=== PATIENT | female | born 1990 | race Caucasian/White ===

== ENCOUNTER 2019-05-12 11:30 | Emergency (ER) | payer OTHER ==
[~2019-05-12] VITALS: Ht 162.6 cm; Wt 54.5 kg
[2019-05-12 11:53] VITALS: Ht 162.6 cm; Wt 54.5 kg
[2019-05-12] MEDS ORDERED: ACETAMINOPHEN 500 MG TAB PO STA (12:21)
[2019-05-12] MEDS ORDERED: DIAZEPAM 5 MG TAB PO ONE (12:30)
[2019-05-12] MEDS ORDERED: HYDROCODONE/APAP (5/325) TAB PO ONE ×2 (14:00→17:30)
[2019-05-12] MEDS ORDERED: HYDR-4011 PO (14:03)
[2019-05-12] MEDS ORDERED: NAPR-985 PO ×2 (14:03→20:57)
--- NOTE | 2019-05-12 16:36 | CONS ---
Assessment/Plan Assessment/Plan Hospital Course (Demo Recall) 29-year-old female who presents the emergency department with right knee pain and fixed flexion at 30 degrees. Given her history of a previous potential meniscus tear symptoms it is possible that this is the old tear that displaced into the notch again. Unlikely a new tear as there is no significant effusion or swelling of the knee. It is also possible that she has a loose body that became stuck in the notch as well. Her location of pain is little unusual she has no joint line pain. At this time we will order an MRI in the emergency department to further evaluate the knee. If positive for a bucket-handle tear and/or loose body will likely refer patient urgently to outpatient orthopedic sports clinic. Plan: Right knee MRI We will follow-up MRI when complete Consultation Date/Type/Reason Admit Date/Time Date of Consultation: May 12, 2019 Reason for Consultation Right knee pain Date/Time of Note DATE: 05/12/19 TIME: 16:29 Hx of Present Illness 29-year-old female presents the emergency department with right knee pain and knee stuck in flexion. She was getting up from a chair at work when she twisted her knee. She did feel a pop. After that she is unable to bear weight and unable to extend her knee fully. This happened to her once before approximately 2 years ago. She did have an MRI at that time, she does mention there was some sort of tear but not sure what it was. She was treated with physical therapy and anti-inflammatories at that time. States her knees have always been weak. Her pain is mostly posterior. She denies numbness and tingling. She does have history of back problems with 2 herniated disks in the lumbar spine. She does have some calf pain. She does not have a history of patellar dislocations. Patient denies fever, chills, shortness of breath, chest pain, nausea/vomiting, constipation, diarrhea, numbness, and tingling. Past Medical History Home Meds Active Scripts Naproxen* (Naprosyn*) 500 Mg Tablet, 500 MG PO BID PRN for PAIN AND/OR INFLAMMATION, #30 TAB Prov:DAVID ROBB PA-C 05/12/19 Hydrocodone/Acetaminophen ([place] 5-325 Tablet) 1 Each Tablet, 1 TAB PO Q6H PRN for PAIN, #7 TAB Prov:DAVID ROBB PA-C 05/12/19 Allergies: Uncoded Allergies: ANTI INFLAMMATORY (Allergy, Severe, SOB/ANGIOEDEMA/HIVES, 05/12/19) Social History Alcohol Use: other Smoking Status: Never smoker Drug Use: none Exam/Review of Systems Exam Vitals Vital Signs Date Temp Pulse Resp B/P (MAP) Pulse Ox O2 O2 Flow FiO2 Time Delivery Rate 05/12/19 98.2 110 18 128/58 99 11:53 (81) Exam General: Awake, alert, in no acute distress, pleasant and cooperative Heart: regular rhythm Lungs: breathing comfortably, no tachypnea or dyspnea MUSCULOSKELETAL: Right lower extremity: Skin intact. No soft tissue swelling. No significant knee effusion. Joint lines are not mildly tender to palpation. Patella tendon is nontender to palpation. Quad tendon is nontender to palpation. Patient's knee is held in 30 degrees of flexion. She has extreme pain when trying to extend her knee any further. The pain is posterior. Flexion past 60 degrees is extremely painful as well. Ligamentous examination limited by pain and lack of motion. However ligamentous exam does not show any obvious injury to the MCL or LCL. Antonella's is negative although the patient is guarding. Posterior drawer is negative. Cannot perform Faheem's exam secondary to decreased patient range of motion and pain. Sensation intact to light touch in a sural, saphenous, deep peroneal, superficial peroneal, medial and lateral plantar nerve distribution. Motor is intact, patient able to dorsiflex and plantarflex ankle and extend and flex great toe. Dorsalis Pedis pulse +2, Brisk capillary refill. Compartments are soft. Calves non-tender to palpation bilaterally. Imaging Imaging 3 views of the right knee were personally reviewed: There is no soft tissue swelling. No knee effusion is appreciated. No fracture. No other acute abnormality. Normal knee x-ray RONDA LIU MD May 12, 2019 16:36
[2019-05-12] MEDS ORDERED: HYDROmorphONE 0.5 MG/0.5 ML SYG IV STA (20:22)
[2019-05-12] MEDS ORDERED: ONDANSETRON 4 MG INJ IV STA (20:22)
--- NOTE | 2019-05-12 21:37 | ERD ---
ER Documentation Chief Complaint Chief Complaint right knee pain, "i heard a pop" today HPI 29-year-old female presents the emergency department complaining of right knee pain which began suddenly while at work earlier standing up from her chair. She states she twisted the right knee. She did feel a pop. Pain is constant and worse with walking. She is unable to weight-bear or fully extend her right knee. She has had a history of similar symptoms in the past approximately 2 years ago. She did have an MRI at that time which showed some sort of tear but she was unsure what type. She was treated with physical therapy and anti- inflammatories and she did improve. She states her knees have always been weak. Her pain is located on the posterior aspect. She denies any numbness or tingling. She denies fevers, chills, chest pain, nausea, vomiting, diarrhea, or other symptoms at this time. ROS All systems reviewed and are negative except as per history of present illness. Medications Home Meds Active Scripts Naproxen* (Naprosyn*) 500 Mg Tablet, 500 MG PO BID PRN for PAIN AND/OR INFLAMMATION, #30 TAB Prov:DAVID ROBB PA-C 05/12/19 Naproxen* (Naprosyn*) 500 Mg Tablet, 500 MG PO BID PRN for PAIN AND/OR INFLAMMATION, #30 TAB Prov:DAVID ROBB PA-C 05/12/19 Hydrocodone/Acetaminophen ([place] 5-325 Tablet) 1 Each Tablet, 1 TAB PO Q6H PRN for PAIN, #7 TAB Prov:DAVID ROBB PA-C 05/12/19 Allergies Allergies: Uncoded Allergies: ANTI INFLAMMATORY (Allergy, Severe, SOB/ANGIOEDEMA/HIVES, 05/12/19) PMhx/Soc History of Surgery: Yes (JAW) Anesthesia Reaction: No Hx Alcohol Use: No Hx Substance Use: No Hx Tobacco Use: No Smoking Status: Never smoker FmHx Family History: No diabetes Physical Exam Vitals Vital Signs Date Temp Pulse Resp B/P (MAP) Pulse Ox O2 O2 Flow FiO2 Time Delivery Rate 05/12/19 98.2 110 18 128/58 99 11:53 (81) Physical Exam Const: No acute distress Head: Atraumatic Eyes: Normal Conjunctiva ENT: Normal External Ears, Nose and Mouth. Neck: Full range of motion. No meningismus Skin: No petechiae or rashes Ext: Tenderness palpation of the lateral and medial aspect of the right knee. Unable to complete special tests of the knee due to the patient being in pain. Patient has fixed at approximately 30 degrees flexion. No numbness or tingling distally. Patient is neurovascularly intact to the right lower extremity. Neur: Awake and alert Psych: Normal Mood and Affect Results 24 hrs Current Medications Medications Dose Sig/Anisa Start Time Status Last (Trade) Ordered Route PRN Stop Time Admin Dose Reason Admin Diazepam 5 mg ONCE ONCE 05/12/19 DC 05/12/19 (Valium) PO 12:30 12:29 05/12/19 12:31 1,000 mg ONCE STAT 05/12/19 DC 05/12/19 Acetaminophen PO 12:21 12:29 (Tylenol 05/12/19 12:23 Tab) 1 tab ONCE ONCE 05/12/19 DC 05/12/19 Acetaminophen PO 14:00 14:23 / 05/12/19 14:01 Hydrocodone Bitart ([place] (5/325)) 1 tab ONCE ONCE 05/12/19 DC 05/12/19 Acetaminophen PO 17:30 17:32 / 05/12/19 17:31 Hydrocodone Bitart ([place] (5/325)) 0.5 mg ONCE STAT 05/12/19 DC 05/12/19 Hydromorphone IV 20:22 20:30 HCl 05/12/19 20:24 (Dilaudid) Ondansetron 4 mg ONCE STAT 05/12/19 DC 05/12/19 HCl (Zofran IV 20:22 20:30 Inj) 05/12/19 20:24 [place] [id number] Radiology Main Line: [phone] DIAGNOSTIC IMAGING REPORT Patient: YAN GOMEZ : 1990 Age: 29 Sex: F MR #: [id number] DOS: 05/12/19 0000 Ordering MD: DAVID ROBB PA-C Location: E/R Room/Bed: PROCEDURE: MRI OF THE RIGHT KNEE CLINICAL INDICATION: Right knee pain, similar to what and heard a pop TECHNIQUE: MRI images of the right knee were obtained in multiple planes utilizing multiple pulse sequences. Images were interpreted on a high-resolution PACS system. COMPARISON: DR CAST 05/12/2019 FINDINGS: Medial compartment: There is no evidence for meniscal degeneration or tear. There is no evidence for chondral defect. The MCL is intact. Lateral compartment: There is a large displaced tear of the lateral meniscus with failure at the posterior meniscocapsular junction and the body and posterior horn flipped anteromedially towards the intercondylar notch (sagittal 17 and axial 15 and coronal 15). The articular cartilage appears normal. The lateral supporting structures are intact.. Intercondylar notch: The ACL is intact. The PCL is intact. Patellofemoral joint: No evidence for chondral defect. The patellar and quadriceps tendons are intact. Other findings: There is a small joint effusion. There is no popliteal cyst. There is no acute fracture. IMPRESSION: 1. Large significantly displaced lateral meniscal tear with failure at the posterior meniscocapsular junction and the majority of the body and posterior horn flipped anteromedially towards the intercondylar notch. 2. No evidence of medial meniscal tear. 3. No evidence of ligament tear. 4. No acute osseous abnormality. RPTAT: [facility] .Ricardo Ascencio MD, MD Date Time Electronically viewed and signed by .Ricardo Ascencio MD, on 05/12/2019 20:57 .K/ CC: DAVID ROBB PA-C [id number] Procedures/MDM 29-year-old female presents to the emergency department complaining of right knee pain after twisting injury earlier today. I did consult the on-call orthopedic physician, Dr. Chun Webb, who evaluated the patient bedside and recommended MRI due to patient unable to weight-bear or ambulate. MRI was consistent with a lateral meniscal tear of the right knee. Full report may be viewed above. I did phone the results to the specialist, Dr. Chun Webb, who recommended discharge with 24 to 48-hour follow-up with orthopedic surgeon. Patient required crutches and splint for compression of the injury.Splint Assessment: Neurovascularly intact post splint placement with good fit. Patient's extremity symptoms have stabilized while they have been evaluated in the department and are appropriate for outpatient follow up. No evidence of compartment syndrome, neurologic injury, vascular injury, open joint, open fracture, tendon laceration, or foreign body. Patient given resources for 24 to 48-hour follow-up with orthopedic physician. No evidence of life-threatening pathology at time of discharge. Pt/family in agreement with discharge plan/diagnosis. Pt/family advised to return immediately with any new or worsening symptoms. Follow-up with primary care physician within the next 1-2 days. Departure Diagnosis: Primary Impression: Right knee injury Encounter type: initial encounter Qualified Codes: S89.91XA - Unspecified injury of right lower leg, initial encounter Condition: Fair Patient Instructions: Treating Meniscus Problems, Knee Immobilizer Referrals: [facility] 7 a.m.- 11 p.m. Every Day of the Week NO APPOINTMENT OR AUTHORIZATION NEEDED [facility] Hours: Mon-Fri 9:00 AM - 5:00 PM Additional Instructions: SPECIALIST: YOU HAVE A MEDICAL CONDITION WHICH REQUIRES YOU TO SEE A SPECIALIST WITHIN THE NEXT 1-2 DAYS. PLEASE FOLLOW UP WITH YOUR PRIMARY PHYSICIAN FOR REFFERAL.IF YOU DO NOT HAVE A PRIMARY CARE PHYSICIAN AND/OR YOU CAN NOT AFFORD TO SEE A PHYSICIAN THE FOLLOWING RESOURCES HAVE BEEN SUPPLIED TO YOU. IT IS YOUR RESPONSIBILITY TO BE SEEN BY THE SPECIALIST: ORTHOPEDICS DAVID ROBB PA-C May 12, 2019 21:37
[2019-05-12 21:48] VITALS: BP 98/84; PULSE 96; RESP 19
== END 2019-05-12 21:48 | disposition home or self-care (01) ==
LOC: FTE 11:30 → E/R 21:48
DX: S89.91XA Unspecified injury of right lower leg, initial encounter (principal); X50.1XXA Overexertion from prolonged static or awkward postures, initial encounter; Y92.9 Unspecified place or not applicable
CPT/HCPCS: 29505; 73562; 73721; J1170; J2405; 96374; 96375